=== PATIENT | female | born 1985 | race Two or more races ===

== ENCOUNTER → 2017-07-23 | Emergency (ER) | payer OTHER ==
[~2017-07-23] VITALS: Ht 160 cm; Wt 53.5 kg
[~2017-07-23] MED LIST: DOLOGEN CAPLET1 EACH PO; NEURONTIN PO; NEURONTIN800 MG PO; PRENATAL TABLE1 EAC1 PO
== END | disposition home or self-care (01) ==
LOC: ER 18:33
DX: K29.70 Gastritis, unspecified, without bleeding (principal)

== ENCOUNTER 2020-06-29 20:36 | Emergency (ER) | payer OTHER ==
[~2020-06-29] VITALS: Ht 160 cm; Wt 59.0 kg
[2020-06-29] MEDS ORDERED: NORTRIPTYLINE H10 MG (21:00)
== END 2020-06-29 22:53 | disposition home or self-care (01) ==
LOC: ER 20:36
DX: M54.2 Cervicalgia (principal); R53.81 Other malaise; Z03.818 Encounter for observation for suspected exposure to other biological agents ruled out

== ENCOUNTER 2024-06-09 03:12 | Emergency (ER) | payer OTHER ==
[~2024-06-09] VITALS: Ht 160 cm; Wt 54.4 kg
[~2024-06-09 03:12] MED LIST changes: +ALBUTEROL2.5 MG/3 M IH; +BUDESONIDE0.5 MG/2 M IH; +NORTRIPTYLINE H10 MG; +PHENAGIL TABLE1 EACH PO; +ZITHROMAX500 MG PO; +ZYNCOF 20-400120 ML PO
[2024-06-09] MEDS ORDERED: HALOPERIDOL LACTATE 5 MG/ML AMPUL IM STA (07:16)
[2024-06-09] MEDS ORDERED: DIPHENHYDRAMINE HCL 50 MG/ML VIAL 1ML IM STA (07:16)
[2024-06-09] MEDS ORDERED: FAMOtidine 10 MG/ML (4ML VIAL) IV PUSH STA (07:17)
[2024-06-09] MEDS ORDERED: ONDANSETRON HCL 2 MG/ML VIAL IV STA (07:17)
[2024-06-09 08:07] LABS: HEMATOCRIT 38.3 % (36.0-45.00); HEMOGLOBIN 13.1 g/dL (12.0-15.00); MEAN CORPUSCULAR HEMOGLOBIN 29.9 pg (27.00-32.0); MEAN CORPUSCULAR HGB CONC 34.3 g/dl (32.0-36.0); PLATELET COUNT 216 K/uL (150-450); RED CELL DISTRIBUTION WIDTH 14.1 % (11.5-14.5)
[2024-06-09 09:33] LABS: URINE APPEARANCE Clear; URINE BILIRRUBIN Negative (NEGATIVE); URINE BLOOD Negative; URINE COLOR Yellow; URINE GLUCOSE Negative (NEGATIVE); URINE KETONE Trace (NEGATIVE); URINE LEUKOCYTE Negative; URINE NITRATE Negative; URINE PROTEIN Negative (NEGATIVE); URINE UROBILINOGEN 0.2 E.U./dl
[2024-06-09 09:38] LABS: URINE BACTERIA 713.1 uL (0.0-1933); URINE EPITHELIAL CELLS 5.2 uL (0.0-38.8); URINE RBC 5.8 uL (0.0-20.8); URINE WBC 5.5 uL (0.0-23.2)
== END 2024-06-09 11:05 | disposition home or self-care (01) ==
LOC: ER 03:14
DX: G43.909 Migraine, unspecified, not intractable, without status migrainosus (principal); Z20.822 Contact with and (suspected) exposure to COVID-19; Z88.0 Allergy status to penicillin; Z91.018 Allergy to other foods